=== PATIENT | female | born 1975 | race Caucasian/White ===

== ENCOUNTER 2023-11-26 17:08 | Emergency (ER) | payer MEDICAID, OTHER, SELFPAY ==
[2023-11-26 17:13] VITALS: BP 125/64; PULSE 53; TEMP 36.8; O2SAT 99; BMI 24.8
[2023-11-26] MEDS: BENZOCAINE 30 ML, lidocaine HCL 15 ML MM (17:22)
--- NOTE | 2023-11-26 17:23 | ED.DENTAL1 ---
HPI - Dental/Oral General Chief complaint: Dental/Oral Stated complaint: DENTAL Time Seen by Provider: 11/26/23 17:10 Source: patient Mode of arrival: walk-in Limitations: no limitations History of Present Illness HPI Narrative: Patient is a 48-year-old female who presents to the emergency department for 3-day history of pain and swelling to the right mandible. She has erosion of teeth #30 and 31. There has been no drainage. She states she developed jaw pain 2 days ago and in the last day and a half has had swelling of the mandible. No fevers or vomiting. No concern for . Related Data Home Medications ?Medication ?Instructions ?Recorded ?Confirmed buprenorphine 8 mg-naloxone 2 mg 1 film sublingual Q24H 11/26/23 11/26/23 sublingual film Previous Rx's ?Medication ?Instructions ?Recorded clindamycin HCl 150 mg capsule 300 mg (2 x 150 mg) PO Q6H 10 days 11/26/23 #80 caps ketorolac 10 mg tablet 10 mg PO TID PRN pain #10 tabs 11/26/23 ondansetron 4 mg disintegrating 4 mg PO Q6H PRN nausea and 11/26/23 tablet vomiting #12 tabs Allergies Allergy/AdvReac Type Severity Reaction Status Date / Time No Known Drug Allergies Allergy Verified 11/26/23 17:13 Review of Systems ROS Constitutional Denies: fever or chills Ears, nose, mouth, and throat Reports: mouth pain; Denies: throat pain or nasal congestion Respiratory Denies: shortness of breath or cough Gastrointestinal Denies: nausea or vomiting Integumentary/Breast Denies: rash Neurological Reports: headache Hematologic/Lymphatic Denies: easy bruising or easy bleeding Exam Narrative Exam Narrative: Gen.: Awake, alert, in no distress Head: Normocephalic, atraumatic ENT: Moist mucous membranes; Multiple dental caries, tooth #30 and tooth #31 eroded to the gumline. No trismus or drooling. Clear speech with uvula midline. Right mandibular swelling with no redness or swelling under the tongue. Respiratory: No respiratory distress Extremities: Moves extremities equally Psych: Normal mood and affect Neuro: No focal neuro deficit Skin: Warm, dry, intact Constitutional Vital Signs, click to edit/add: Last Vital Signs Temp 98.2 F 11/26/23 17:13 Pulse 53 L 11/26/23 17:13 Resp 18 11/26/23 17:13 BP 125/64 11/26/23 17:13 Pulse Ox 99 11/26/23 17:13 O2 Del Method Room Air 11/26/23 17:13 Course Vital Signs Vital signs: Vital Signs Temperature 98.2 F 11/26/23 17:13 Pulse Rate 53 L 11/26/23 17:13 Respiratory Rate 18 11/26/23 17:13 Blood Pressure 125/64 11/26/23 17:13 Pulse Oximetry 99 11/26/23 17:13 Oxygen Delivery Method Room Air 11/26/23 17:13 Temperature 98.2 F 11/26/23 17:13 Pulse Rate 53 L 11/26/23 17:13 Respiratory Rate 18 11/26/23 17:13 Blood Pressure 125/64 11/26/23 17:13 Pulse Oximetry 99 11/26/23 17:13 Oxygen Delivery Method Room Air 11/26/23 17:13 MDM - Dental/Oral MDM Narrative Medical decision making narrative: Patient treated for dental infection with clindamycin, NSAIDs and topical analgesia. OARRS shows CG is on Suboxone daily so we will avoid narcotics. Dental referral given and the patient is instructed to follow-up with the dentist as she is able to. Return to the ER if symptoms change or worsen Medical Records Attestation: I reviewed the patient's medical records. Discharge Plan Discharge Stand Alone Forms: Portal Instructions Chief Complaint: Dental/Oral Clinical Impression: Dental caries, Toothache Patient Disposition: Home, Self-Care Time of Disposition Decision: 17:21 Condition: Good Prescriptions / Home Meds: New clindamycin HCl 150 mg capsule 300 mg PO Q6H 10 Days Qty: 80 0RF ketorolac 10 mg tablet 10 mg PO TID PRN (Reason: pain) Qty: 10 0RF ondansetron 4 mg tablet,disintegrating 4 mg PO Q6H PRN (Reason: nausea and vomiting) Qty: 12 0RF No Action buprenorphine-naloxone 8-2 mg film 1 film sublingual Q24H Print Language: Kinyarwanda Instructions: Toothache (ED) Referrals: Physician,Non-Staff, MD [Primary Care Provider] - 1 week
== END 2023-11-26 17:35 | disposition home or self-care (01) ==
PROVIDERS: Emergency Provider Emergency Medicine Emergency Medical Services; Family Provider Family Medicine
DX: K02.9 Dental caries, unspecified (principal); K08.89 Other specified disorders of teeth and supporting structures
CPT/HCPCS: 99283